=== PATIENT | female | born 1960 | race Caucasian/White ===

== ENCOUNTER → 2016-08-21 | Outpatient (CLI) | payer MEDICAID ==
[~2016-08-21] MED LIST: DILT120T3 PO; METF10002 PO; SIMV40TA3 PO; TIZA4CAP PO; TRAM100T2 PO
[2016-08-21 09:16] LABS: HEMOGLOBIN 15.3 g/dL (11.7-16.4)
[2016-08-21 09:18] LABS: PATH.CAST-FLAG NOT PRESENT; SPERM-FLAG NOT PRESENT; SRC-FLAG NOT PRESENT; XTAL-FLAG NOT PRESENT; YLC-FLAG NOT PRESENT
[2016-08-21 09:26] LABS: ASPARTATE AMINO TRANSFERASE 20 U/L (15-37); BLOOD UREA NITROGEN 13 mg/dL (7-18)
== END | disposition home or self-care (01) ==
LOC: STAR 08:14
PROVIDERS: ATTEND Neurological Surgery
DX: Z01.811 Encounter for preprocedural respiratory examination (principal); M50.30 Other cervical disc degeneration, unspecified cervical region; R79.1 Abnormal coagulation profile
CPT/HCPCS: 36415; 71020; 80053; 81001; 85025; 85610; 85730; 93005

== ENCOUNTER 2016-08-28 05:24 | Inpatient (IN) | payer MEDICAID ==
[2016-08-25 14:39] LABS: PATH.CAST-FLAG NOT PRESENT; SPERM-FLAG NOT PRESENT; SRC-FLAG NOT PRESENT; XTAL-FLAG NOT PRESENT; YLC-FLAG NOT PRESENT
[~2016-08-28] VITALS: Ht 167.6 cm; Wt 103.4 kg
[2016-08-28] MEDS ORDERED: LACTATED RINGERS 1,000 ML IV SCH (06:09)
[2016-08-28] MEDS ORDERED: BUPIVACAINE/PF-EPI 0.25% 1:200K ONE (06:11)
[2016-08-28] MEDS ORDERED: BACITRACIN 50,000 UNIT ONE (06:11)
[2016-08-28] MEDS ORDERED: THROMBIN 5,000 UNIT VIAL TP ONE (06:11)
[2016-08-28] MEDS ORDERED: LIDOCAINE 1%, 2ML SQ PRN (06:30)
[2016-08-28] MEDS ORDERED: KETAMINE 10 MG/ML, 20ML ONE (06:52)
[2016-08-28] MEDS ORDERED: FENTANYL PF 250 MCG/5ML ONE (06:53)
[2016-08-28] MEDS ORDERED: PROPOFOL 10 MG/ML, 50ML ONE (07:05)
[2016-08-28] MEDS ORDERED: SUCCINYLCHOLINE 20 MG/ML, 10ML ONE (07:05)
[2016-08-28] MEDS ORDERED: LIDOCAINE 1%, 20ML ONE (07:05)
[2016-08-28] MEDS ORDERED: METOCLOPRAMIDE 5 MG/ML, 2ML ONE (07:05)
[2016-08-28] MEDS ORDERED: ONDANSETRON 2MG/ML, 2ML ONE (07:05)
[2016-08-28] MEDS ORDERED: PROPOFOL 10 MG/ML, 20ML ONE (07:05)
[2016-08-28] MEDS ORDERED: CEFAZOLIN 1,000 MG ONE (07:05)
[2016-08-28] MEDS ORDERED: PROMETHAZINE 25 MG/ML, 1ML IV PRN (08:00)
[2016-08-28] MEDS ORDERED: ONDANSETRON 2MG/ML, 2ML IVPush PRN (08:00)
[2016-08-28] MEDS ORDERED: OXYcodone 5 MG/5 ML ORAL.SOL UDC PO PRN (08:00)
[2016-08-28] MEDS ORDERED: LABETALOL 5MG/ML, 20ML IV PRN ×2 (08:00→12:30)
[2016-08-28] MEDS ORDERED: MIDAZOLAM 1 MG/ML, 2ML IV PRN (08:00)
[2016-08-28] MEDS ORDERED: hydrALAzine 20 MG/ML, 1ML IV PRN (08:00)
[2016-08-28] MEDS ORDERED: MEPERIDINE/PF 25MG/0.5ML IVPush PRN (08:00)
[2016-08-28] MEDS ORDERED: FENTANYL PF 100 MCG/2ML ONE (08:52)
[2016-08-28] MEDS ORDERED: OXYcodone 5 MG/5 ML ORAL.SOL UDC ONE (08:52)
[2016-08-28] MEDS ORDERED: HYDROmorphone 2 MG/ML, 1ML ONE (08:52)
[2016-08-28] MEDS: FENTANYL PF 100 MCG/2ML IV PRN ×2 (08:55→09:00)
[2016-08-28] MEDS ORDERED: hydrALAzine 20 MG/ML, 1ML ONE (09:06)
[2016-08-28] MEDS: HYDROmorphone 1 MG/ML, 1ML IV PRN ×5 (09:20→10:00)
[2016-08-28 11:19] VITALS: BP 145/63
[2016-08-28] MEDS ORDERED: MORPHINE SULFATE 4 MG/ML, 1ML ONE (11:41)
[2016-08-28] MEDS: LACTATED RINGERS 1,000 ML IV SCH ×4 (12:24→23:00)
[2016-08-28] MEDS ORDERED: DIPHENHYDRAMINE 50 MG/ML, 1ML IVPush PRN (12:30)
[2016-08-28] MEDS ORDERED: MAGNESIUM HYDROXIDE 8%, 30ML UDC PO PRN (12:30)
[2016-08-28] MEDS ORDERED: BISACODYL 10 MG SUPP PR PRN (12:30)
[2016-08-28] MEDS ORDERED: CYCLOBENZAPRINE 10 MG TABLET PO PRN (12:30)
[2016-08-28] MEDS ORDERED: morphine SULFATE 10 MG/ML, 1ML IV PRN (12:30)
[2016-08-28] MEDS ORDERED: DIPHENHYDRAMINE 25 MG CAPSULE PO PRN (12:30)
[2016-08-28] MEDS ORDERED: HYDROcodone/APAP 5/325 TABLET PO PRN (12:30)
[2016-08-28] MEDS ORDERED: ONDANSETRON 2MG/ML, 2ML IV PRN (12:30)
[2016-08-28] MEDS: HYDROcodone/APAP 10/325 MG TABLET PO PRN ×3 (12:47→21:24)
[2016-08-28 14:54] VITALS: BP 168/83
[2016-08-28] MEDS: CEFAZOLIN PMX 1GM/50ML 50 ML IVPB SCH ×2 (15:32→23:43)
[2016-08-28] MEDS: INSULIN REGULAR 100 UNITS/ML, 3ML VIAL SQ-INSULIN SCH ×2 (15:48→22:16)
[2016-08-28] MEDS ORDERED: DEXAMETHASONE 4 MG/ML, 1ML IV ONE (16:00)
[2016-08-28 19:30] VITALS: BP 185/88
[2016-08-28] MEDS: FAMOTIDINE 20 MG TABLET PO SCH (21:24)
[2016-08-28 22:29] VITALS: BP 136/76
[2016-08-29 00:21] VITALS: BP 156/75
[2016-08-29] MEDS: HYDROcodone/APAP 10/325 MG TABLET PO PRN ×3 (02:33→10:30)
[2016-08-29 03:05] VITALS: BP 151/73
[2016-08-29 05:33] LABS: BLOOD UREA NITROGEN 7 mg/dL (7-18)
[2016-08-29] MEDS: INSULIN REGULAR 100 UNITS/ML, 3ML VIAL SQ-INSULIN SCH (06:47)
[2016-08-29] MEDS: CEFAZOLIN PMX 1GM/50ML 50 ML IVPB SCH (06:47)
[2016-08-29] MEDS ORDERED: metFORMIN XR 500 MG TAB.ER.24H PO SCH (08:00)
[2016-08-29] MEDS ORDERED: HYDR-3307 PO (08:41)
[2016-08-29] MEDS ORDERED: CEPH-368 PO (08:42)
[2016-08-29] MEDS: LACTATED RINGERS 1,000 ML IV SCH (08:42)
[2016-08-29] MEDS: FAMOTIDINE 20 MG TABLET PO SCH (08:43)
[2016-08-29 08:53] VITALS: BP 151/79
[2016-08-29] MEDS ORDERED: SENNA/DOCUSATE TABLET PO SCH (09:00)
[2016-08-29] MEDS ORDERED: DILTIAZEM 120 MG CAP.ER.24H PO SCH (09:00)
[2016-08-29] MEDS ORDERED: SIMVASTATIN 40 MG TABLET PO SCH (21:00)
== END 2016-08-29 11:41 | disposition home or self-care (01) | DRG 473 ==
LOC: ORIP 05:24 → 4NOR 10:16 → DCLOUNGE 08-29 11:23
PROVIDERS: ADMIT Neurological Surgery; ATTEND Neurological Surgery
PROC: 0RP104Z Removal of Internal Fixation Device from Cervical Vertebral Joint, Open Approach (ICD-10-PCS; 2016-08-28)
PROC: 01N10ZZ Release Cervical Nerve, Open Approach (ICD-10-PCS; 2016-08-28)
PROC: 0RB30ZZ Excision of Cervical Vertebral Disc, Open Approach (ICD-10-PCS; 2016-08-28)
PROC: 4A11X4G Monitoring of Peripheral Nervous Electrical Activity, Intraoperative, External Approach (ICD-10-PCS; 2016-08-28)
PROC: 0RG10A0 Fusion of Cervical Vertebral Joint with Interbody Fusion Device, Anterior Approach, Anterior Column, Open Approach (ICD-10-PCS; principal; 2016-08-28 07:00)
DX: M50.121 Cervical disc disorder at C4-C5 level with radiculopathy (principal); M48.02 Spinal stenosis, cervical region; J44.9 Chronic obstructive pulmonary disease, unspecified; I10 Essential (primary) hypertension; E66.01 Morbid (severe) obesity due to excess calories; M40.209 Unspecified kyphosis, site unspecified; Z68.35 Body mass index [BMI] 35.0-35.9, adult
CPT/HCPCS: 36415; 72040; 80048; 81001; 82962; 85025; J0690; J1100; J1170; J1815; J2405; J2704; J3010; J3490; J0330; J0360; J2270; J2765; J7120

== ENCOUNTER 2016-09-03 13:57 | Emergency (ER) | payer MEDICAID ==
[~2016-09-03] VITALS: Ht 167.6 cm; Wt 99.6 kg
[~2016-09-03 13:57] MED LIST changes: +CEPH-368 PO; +HYDR-3307 PO
[2016-09-03] MEDS ORDERED: SODIUM CHLORIDE 0.9% 1,000 ML IV ONE (14:31)
[2016-09-03] MEDS ORDERED: ONDANSETRON 2MG/ML, 2ML ONE (14:45)
[2016-09-03] MEDS ORDERED: MAALOX/HYOSCYAMINE/LIDOCAINE 45 ML BOTTLE ONE (14:45)
[2016-09-03] MEDS ORDERED: FAMOTIDINE 20 MG/2 ML ONE (14:45)
[2016-09-03] MEDS ORDERED: MAALOX/HYOSCYAMINE/LIDOCAINE 45 ML BOTTLE PO ONE (15:00)
[2016-09-03] MEDS ORDERED: SODIUM CHLORIDE 0.9% 1,000ML IVBOLUS ONE (15:00)
[2016-09-03] MEDS ORDERED: FAMOTIDINE 20 MG/2 ML IVP ONE (15:00)
[2016-09-03] MEDS ORDERED: ONDANSETRON 2MG/ML, 2ML IVPush ONE (15:00)
[2016-09-03 15:18] LABS: ASPARTATE AMINO TRANSFERASE 17 U/L (15-37); BLOOD UREA NITROGEN 10 mg/dL (7-18)
[2016-09-03 15:24] LABS: IS PT STATUS REG ER OR PRE ER? YES
[2016-09-03 16:43] VITALS: BP 158/88
== END 2016-09-03 16:59 | disposition home or self-care (01) ==
LOC: ED 16:53
DX: K21.9 Gastro-esophageal reflux disease without esophagitis (principal); K59.00 Constipation, unspecified; I10 Essential (primary) hypertension; E11.9 Type 2 diabetes mellitus without complications
CPT/HCPCS: 36415; 74022; 80053; 81001; 83605; 83690; 84484; 85025; 85610; 87086; 93005; 96361; 96374; 96375; 99285; J2405; J7030; S0028

== ENCOUNTER 2016-09-05 13:49 | Emergency (ER) | payer MEDICAID ==
[2016-09-05] MEDS ORDERED: ONDANSETRON ODT 4 MG ONE (14:28)
[2016-09-05] MEDS ORDERED: ONDANSETRON ODT 4 MG PO ONE (14:30)
[2016-09-05 14:50] LABS: ASPARTATE AMINO TRANSFERASE 14 U/L (15-37); BLOOD UREA NITROGEN 6 mg/dL (7-18)
[2016-09-05] MEDS ORDERED: KETOROLAC 30 MG/1 ML IM ONE (15:00)
[2016-09-05] MEDS ORDERED: KETOROLAC 30 MG/1 ML ONE (15:11)
[2016-09-05 15:15] VITALS: BP 159/78
== END 2016-09-05 17:33 | disposition home or self-care (01) ==
LOC: ED 17:27
DX: F15.93 Other stimulant use, unspecified with withdrawal (principal); K21.9 Gastro-esophageal reflux disease without esophagitis; I10 Essential (primary) hypertension; E11.9 Type 2 diabetes mellitus without complications
CPT/HCPCS: 36415; 72050; 80053; 85025; 96372; 99285; J1885; Q0162